=== PATIENT | female | born 1960 | race Caucasian/White ===

== ENCOUNTER 2023-12-02 11:03 | Outpatient (OUT) | payer OTHER, SELFPAY ==
--- NOTE | 2023-12-02 11:10 | MM_ITS ---
Patient Name: CHETNA JOSHUA MR#: [id number] : 1960 Exam Date: 12/02/2023 Ordering Doctor: DUC ROBLES . RADIOLOGY REPORT PROCEDURE: MM TOMOSYNTHESIS SCREENING BI COMPARISON: MG MAMM SCREEN 3D GLORIA CAD, 11/30/2022. MG MAMM SCREEN 3D GLORIA CAD, 11/23/2021. MG MAMM SCREEN 3D GLORIA CAD, 11/21/2020. MG MAMM GLORIA SCRN W CAD DIG, 07/21/2013. INDICATIONS: Screening Calculator Name NCI Breast Cancer Risk Assessment Tool 5 Year Breast Cancer Risk 1.90% Lifetime Breast Cancer Risk 8.10% Personal Breast Cancer No Personal Ovarian Cancer No Treatments None Family Cancers Sister with skin cancer at age 56. LOCATION: [facility] BREAST COMPOSITION: The breasts are extremely dense, which lowers the sensitivity of mammography. FINDINGS: DIAGNOSTIC CATEGORY 1--NEGATIVE. RIGHT BREAST: No significant suspicious finding. No significant change has occurred. LEFT BREAST: No significant suspicious finding. No significant change has occurred. RECOMMENDATIONS: ROUTINE MAMMOGRAM AND CLINICAL EVALUATION IN 12 MONTHS. PLEASE NOTE: A NORMAL MAMMOGRAM DOES NOT EXCLUDE THE POSSIBILITY OF BREAST CANCER. A CLINICALLY SUSPICIOUS PALPABLE LUMP SHOULD BE BIOPSIED. Dictated by: Lui Orozco M.D. on 12/03/2023 at 14:32 Approved by: Lui Orozco M.D. on 12/03/2023 at 14:33
== END 2023-12-02 11:04 | disposition home or self-care (01) ==
LOC: MAMMO 11:06
PROVIDERS: PCP Nurse Practitioner; Visit Provider Nurse Practitioner
DX: Z12.31 Encounter for screening mammogram for malignant neoplasm of breast (principal); Z80.8 Family history of malignant neoplasm of other organs or systems
CPT/HCPCS: 77063; 77067

== ENCOUNTER 2024-04-13 08:25 | Outpatient (OUT) | payer OTHER, SELFPAY ==
--- OUTSIDE RECORDS SUMMARY | 2024-04-13 08:29 | XMS_ITS | CCD ---
Author Organization [facility] Inform ion Partnership [facility] Care Team Providers Care Telemetry Monitor Name Role Phone SUMANTH, DR FRED Smith Consulting Unavailable SUMANTH, DR FRED Smith Primary Care Unavailable SUMANTH, DR FRED Smith Admitting Unavailable SUMANTH, DR FRED Smith Attending Unavailable SUMANTH, DR FRED Smith Consulting Unavailable SUMANTH, DR FRED Smith Primary Care Unavailable SUMANTH, DR FRED Smith Admitting Unavailable SUMANTH, DR FRED Smith Attending Unavailable ELIO, DR LALO Ford Consulting Unavailable SUMANTH, DR FRED Smith Consulting Unavailable SUMANTH, DR FRED Smith Primary Care Unavailable SUMANTH, DR FRED Smith Admitting Unavailable SUMANTH, DR FRED Smith Attending Unavailable ELIO, DR LALO Ford Consulting Unavailable Jeanette Shipley Primary Care Physician [phone] DO Jose G Carter Attending Unavailable Violetta, JU Reza Attending Unavailable Allergies Allergy Classification Reported Allergen(s) Allergy Type Date of Onset Reaction(s) Facility (1 source) No Known Medication Allergies; Translations: [No Known Medication Allergies] Propensity to adverse reactions (disorder) [facility] Repository Problems Active Problems Problem Classification Problem Date Documented Da te Episodic/Chronic Hemorrhoids (1 source) External hemorrhoids 04-22-2019 Episodic Malaise and fatigue (1 source) Fatigue 04-05-2023 Episodic Unclassified (1 source) Patient encounter status 04-05-2023 Past or Other Problems Problem Classification Problem Date Documented Da te Episodic/Chronic Fracture of lower limb (1 source) Nondisplaced fracture of proximal phalanx of right lesser toe(s), initial encounter for closed fracture; Translations: [NDSPL FX FL PHAL RT LSR TOE INIT CL] Onset: 06-24-2021 Episodic Other connective tissue disease (4 sources) Pain in right foot; Translations: [PAIN IN RIGHT FOOT] Onset: 06-20-2021 Episodic Other screening for suspected conditions (not mental disorders or infectious disease) (4 sources) Encounter for screening mammogram for malignant neoplasm of breast; Translations: [ENC SCR MAMMO MALIG NEOPLASM BREAST] Onset: 11-23-2021 Episodic Residual codes; unclassified (1 source) Family history of malignant neoplasm of other organs or systems; Translations: [FAM HX MALIG NEOPLASM OTH ORGN/SYS] Onset: 11-29-2021 Episodic Results Test Name Value Interpretation Reference Range Facility Ambulatory Visit Summaryon 0 04-08-2024 Ambulatory Visit Summary Ambulatory Visit Summary CHETNA MEDEIROS :1960 Visit Date:04/08/2024 Ambulatory Visit Instructions Your Diagnosis Wellness examination Fatigue Family history of thyroid disease BMI less than 19,adult Non-smoker Your Care Team Attending Physician - Jeanette Lemus Primary Care Physician - Jeanette Lemus Procedures Performed Hemorrhoidectomy (04/13/2019), Biopsy of breast, D&C - Dilatation and curettage, excision of skin cancer. Discharge Vitals Temperature (Temporal Artery) 36.6 ?C Heart Rate (Peripheral) 101 Respiratory Rate 16 Blood Pressure 110/72 Height 180 cm Height 71 in Weight 63.8 kg Weight 140.36 lb BMI 19.69 Allergies No Known Medication Allergies Problems Ongoing - Any problem that you are currently receiving treatment for. External hemorrhoid Family history of thyroid disease Fatigue Wellness examination Patient Survey You may receive a survey via text or e-mail asking about your office visit. Please share your experience with us by completing your survey. We appreciate your feedback and thank you for choosing us for your care. Normal [facility] Family Medicine Office/Clini c Noteon 04-08-2024 Family Medicine Office/Clinic Note Family Medicine Office/Clinic Note Chief Complaint Annual Wellness HPI Staff Pt presents today for annual wellness visit. Health Maintenance: Colonoscopy: 2011 normal Mammo:12/02/23 normal Pap:2020 normal Last Labs: 04/05/23 Does not have wellness paperwork on her. States she will get it later this week & then bring it in for us to fill out. Arms & hands have been itching. Noticed redness on Lt elbow area today. History of Present Illness pt presents today for wellness visit Review of Systems PHQ Score Initial Depression Screen Score: 0 SCORE Physical Exam Vitals & Measurements T: 36.6 ?C(Temporal Artery) HR: 101(Peripheral) RR: 16 BP: 110/72 SpO2: 97% HT: 71 in HT: 180 cm WT: 63.8 kg WT: 140.36 lb BMI: 19.69 General: alert, no acute distress ENMT: oral mucosa moist, no pharyngeal erythema or exudate Cardiovascular: regular rate and rhythm, normal peripheral perfusion Respiratory: Lungs CTA, respirations non labored Extremities: no deformity, no trauma Neurological: oriented x 4, LOC appropriate for age, CN II-XII intact, motor strength equal & normal bilaterally, speech normal Assessment/Plan 1. Wellness examination (Z00.00: Encounter for general adult medical examination without abnormal findings) pt presents for wellness visit. labs printed off. she will have them done at [employer] which is her employer. pt will be retiring in 9 months. 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 physical exam WNL. pt will ask employer if she needs a form completed for insurance. RTC as needed Ordered: CBC w/ Auto Diff Comprehensive Metabolic Panel Est Preventative 40 to 64 years 32653 Free T4 Lipid Panel T3 Free Thyroid Stimulating Hormone 2. Fatigue (R53.83: Other fatigue) will order labs Ordered: CBC w/ Auto Diff Comprehensive Metabolic Panel Est Preventative 40 to 64 years 64858 Free T4 Lipid Panel T3 Free Thyroid Stimulating Hormone 3. Family history of thyroid disease (Z83.49: Family history of other endocrine, nutritional and metabolic diseases) pt twins sister and mother have thyroid disorder. pt feeling very fatigued lately. will check labs today Ordered: CBC w/ Auto Diff Comprehensive Metabolic Panel Est Preventative 40 to 64 years 68532 Free T4 Lipid Panel T3 Free Thyroid Stimulating Hormone 4. BMI less than 19,adult (Z68.1: Body mass index [BMI] 19.9 or less, adult) BMI education given Ordered: CBC w/ Auto Diff Comprehensive Metabolic Panel Est Preventative 40 to 64 years 47169 Free T4 Lipid Panel T3 Free Thyroid Stimulating Hormone 5. Non-smoker (Z78.9: Other specified health status) continue not smoking Ordered: CBC w/ Auto Diff Comprehensive Metabolic Panel Est Preventative 40 to 64 years 00026 Free T4 Lipid Panel T3 Free Thyroid Stimulating Hormone Follow-up No qualifying data available Problem List/Past Medical History Ongoing External hemorrhoid Family history of thyroid disease Fatigue Wellness examination Historical No qualifying data Procedure/Surgical History Hemorrhoidectomy (04/13/2019), Biopsy of breast, D&C - Dilatation and curettage, excision of skin cancer. Medications No active medications Allergies No Known Medication Allergies Social History Alcohol - Denies Alcohol Use, 03/30/2019 Substance Abuse - Denies Substance Abuse, 03/30/2019 Tobacco Never (less than 100 in lifetime) Tobacco Use:. Never Smokeless Tobacco Use:. Household tobacco concerns: No. Yes, 04/08/2024 Family History Family history is negative Immunizations Vaccine Date Status Comments influenza virus vaccine, inactivated 05/09/2023 Given influenza virus vaccine, inactivated - Not Given Patient Refuses [place] [facility] influenza virus vaccine, inactivated 05/07/2022 Recorded influenza virus vaccine, inactivated 05/30/2021 Given Prophylaxis SARS-CoV-2 (COVID-19) mRNA-1273 vaccine 08/08/2020 Recorded SARS-CoV-2 (COVID-19) mRNA-1273 vaccine 07/11/2020 Recorded Normal [facility] Comment on above: Result Comment: Elec tronically Signed By: Jeanette Lemus\.br\Date and Time Signed: 04/08/24 10:47 EDT Outside Mammographyon 2023 Outside Mammography [id number] 26B#1.00TIFF Normal [facility] CHEMISTRYOrdered By: SYSTEM SYSTEM on 04-05-2023 Albumin [Mass/Vol] 4.0 g/dL Normal 3.3 - 5.0 gm/dL [facility] Remisol Albumin/Globulin [Mass ratio] 1.4 {ratio} Normal 1.1 - 2.2 FT Remisol ALP [Catalytic activity/Vol] 63 [iU]/d Normal 21 - 98 Int._Unit/L [facility] Remisol ALT No additional P-5'-P [Catalytic activity/Vol] 12 [iU]/d Normal 6 - 46 Int._Unit/L [facility] Remisol Anion gap [Moles/Vol] 10 mmol/L Normal 6 - 16 mEq/L [facility] Remisol AST [Catalytic activity/Vol] 22 [iU]/d Normal 5 - 43 Int._Unit/L [facility] Bilirubin [Mass/Vol] 0.9 mg/dL Normal 0.0 - 1 .1 mg/dL [facility] Calcium [Mass/Vol] 9.2 mg/dL Normal 8.9 - 11. 1 mg/dL [facility] Chloride [Moles/Vol] 109 mmol/L Normal 101 - 1 11 mmol/L [facility] Cholesterol [Mass/Vol] 172 mg/dL Normal 120 - 200 mg/dL [facility] Cholesterol in HDL [Mass/Vol] 76 mg/dL Invalid Interpretation Code [facility] Cholesterol in LDL [Mass/Vol] 83 mg/dL Normal <=129mg/dL [facility] Cholesterol in VLDL [Mass/Vol] 8 mg/dL Normal 7 - 40 mg/dL [facility] CO2 [Moles/Vol] 27 mmol/L Normal 21 - 31 mmol/L [facility] Creatinine [Mass/Vol] 0.7 mg/dL Normal 0.5 - 1.3 mg/dL [facility] GFR/1.73 sq M.predicted among non-blacks MDRD (S/P/Bld) [Vol rate/Area] 97 mL/min/1.73 m2 Normal >=59mL/min/1. 73 m2 FT Chem S Globulin (S) [Mass/Vol] 2.9 g/dL Normal 1.4 - 4.0 gm/dL [facility] Glucose [Mass/Vol] 84 mg/dL Normal 55 - 199 mg/dL [facility] Potassium [Moles/Vol] 4.5 mmol/L Normal 3.5 - 5.3 mmol/L [facility] Protein [Mass/Vol] 6.9 g/dL Normal 6.0 - 7.8 gm/dL [facility] Sodium [Moles/Vol] 141 mmol/L Normal 135 - 145 mmol/L [facility] Triglyceride [Mass/Vol] 42 mg/dL Normal <=149mg/dL [facility] TSH Qn 1.07 m[IU]/L Normal 0.34 - 5.60 mcIU/mL [facility] Urea nitrogen [Mass/Vol] 17 mg/dL Normal 5 - 21 mg/dL [facility] Urea nitrogen/Creatinine [Mass ratio] 24 mg/mg High 10 - 20 [facility] HEMATOLOGYOrdered By: SYSTEM SYSTEM on 04-05-2023 Basophils/100 WBC (Bld) 1.0 % Normal 0.0 - 2.0 % [facility] HemeAutoSS Basophils/Leukocytes Auto (Bld) [Pure # fraction] 0.1 E9/L Normal 0.0 - 0.2 E9/L [facility]Auto[facility] Eosinophils/100 WBC (Bld) 4.2 % Normal 0.0 - 8.0 % [facility]Auto[facility] Eosinophils/Leukocytes Auto (Bld) [Pure # fraction] 0.2 E9/L Normal 0.0 - 0.5 E9/L [facility] Lymphocytes/100 WBC (Bld) 35.0 % Normal 14.0 - 50.0 % [facility]eAutoSS Lymphocytes/Leukocytes Auto (Bld) [Pure # fraction] 1.9 E9/L Normal 1.0 - 4.0 E9/L [facility]Auto[facility] Monocytes/100 WBC (Bld) 11.4 % Normal 4.0 - 14.0 % [facility]eAutoSS Monocytes/Leukocytes Auto (Bld) [Pure # fraction] 0.6 E9/L Normal 0.2 - 1.0 E9/L [facility] Neutrophils/100 WBC (Bld) 48.4 % Normal 36.0 - 75.0 % [facility]eAutoSS Neutrophils/Leukocytes Auto (Bld) [Pure # fraction] 2.6 E9/L Normal 2.0 - 7.5 E9/L [facility] HEMATOLOGYOrdered By: Ivan Sung on 04-05-2023 Erythrocyte distribution width (RBC) [Ratio] 14.8 % High 10.9 - 14.2 % [facility] Hematocrit (Bld) [Volume fraction] 41.2 % Normal 34.0 - 46.0 % [facility] Hemoglobin (Bld) [Mass/Vol] 13.6 g/dL Normal 12.0 - 16.0 gm/dL [facility] MCH (RBC) [Entitic mass] 27.8 pg Normal 27.0 - 34.0 pg [facility] MCHC (RBC) [Mass/Vol] 32.9 g/dL Normal 31.4 - 36.0 gm/dL [facility] MCV (RBC) [Entitic vol] 84.5 fL Normal 80.0 - 100.0 fL [facility] Platelet mean volume (Bld) [Entitic vol] 8.1 fL Normal 6.4 - 10.8 fL [facility] HemeAutoSS Platelets (Bld) [#/Vol] 366.0 E9/L Normal 150.0 - 500.0 E9/L [facility] RBC (Bld) [#/Vol] 4.9 E12/L Normal 4.3 - 5.9 E12/L [facility] WBC corrected for nucl RBC Auto (Bld) [#/Vol] 5.5 E9/L Normal 4.0 - 11.0 E9/L [facility] CBC AUTO DIFFon 04-13-2022 BASO # 0.1 103/ul Normal 0.0-0.1 [facility] Comment on above: Performed By: #### C BC #### [facility] [address] [place] [address] Dr. Sumaya Frazier Basophils/100 WBC (Bld) 1.7 % Normal 0.2-2.0 [facility] Comment on above: Performed By: #### C BC #### [facility] [address] [place] [address] Dr. Sumaya Frazier EO # 0.2 103/ul Normal 0.0-0.7 [facility] Comment on above: Performed By: #### C BC #### [facility] [address] [place] [address] Dr. Sumaya Frazier Eosinophils/100 WBC (Bld) 2.2 % Normal 0.9-7.0 [facility] Comment on above: Performed By: #### C BC #### [facility] [address] [address] [address] Sumaya Frazier Erythrocyte distribution width (RBC) [Ratio] 14.6 % Normal 11.0-15.0 [facility] Comment on above: Performed By: #### C BC #### [facility] [address] [place] [address] Dr. Sumaya Frazier Hematocrit (Bld) [Volume fraction] 41.9 % Normal 36.0-48.0 [facility] Comment on above: Performed By: #### C BC #### [facility] [address] [place] [address] Dr. Sumaya Frazier Hemoglobin (Bld) [Mass/Vol] 13.2 g/dL Normal 12.0-16.0 [facility] Comment on above: Performed By: #### C BC #### [facility] [address] [place] [address] Dr. Sumaya Frazier IG # 0.02 10e3/ul Normal 0.00-0.03 [facility] Comment on above: Performed By: #### C BC #### [facility] [address] [place] [address] Dr. Sumaya Frazier IG % 0.3 % Normal 0.0-0.5 [facility] Comment on above: Performed By: #### C BC #### [facility] [address] [place] [address] Dr. Sumaya Frazier LYMPH # 3.1 103/ul Normal 1.2-3.8 [facility] Comment on above: Performed By: #### C BC #### [facility] [address] [place] [address] Dr. Sumaya Frazier Lymphocytes/100 WBC (Bld) 44.8 % Normal 20.5-60.0 [facility] Comment on above: Performed By: #### C BC #### [facility] [address] [place] [address] Dr. Sumaya Frazier MANUAL DIFF REQ NO Normal [facility] Comment on above: Performed By: #### C BC #### [facility] [address] [place] [address] Dr. Sumaya Frazier MCH (RBC) [Entitic mass] 27.2 pg Normal 26.7-34.0 [facility] Comment on above: Performed By: #### C BC #### [facility] [address] [place] [address] Dr. Sumaya Frazier MCHC (RBC) [Mass/Vol] 31.5 g/dL Normal 29.9-35.2 [facility] Comment on above: Performed By: #### C BC #### [facility] [id number] Sumaya Frazier MCV (RBC) [Entitic vol] 86.2 fL Normal 81.0-99.0 [facility] Comment on above: Performed By: #### C BC #### [facility] [address] [address] [address] Sumaya Frazier MONO # 0.7 103/ul Normal 0.3-0.8 [facility] Comment on above: Performed By: #### C BC #### [facility] [address] [place] [address] Dr. Sumaya Frazier Monocytes/100 WBC (Bld) 10.2 % Normal 1.7-12.0 [facility] Comment on above: Performed By: #### C BC #### [facility] [address] [place] [address] Dr. Sumaya Frazier NEUT # 2.8 103/ul Normal 1.4-6.5 [facility] Comment on above: Performed By: #### C BC #### [facility] [address] [place] [address] Dr. Sumaya Frazier Neutrophils/100 WBC (Bld) 40.8 % Critically low 43.0-75.0 [facility] Comment on above: Performed By: #### C BC #### [facility] [address] [place] [address] Dr. Sumaya Frazier Platelet mean volume (Bld) [Entitic vol] 9.4 fL Critically low 9.5-13.5 [facility] Comment on above: Performed By: #### C BC #### [facility] [address] [place] [address] Dr. Sumaya Frazier PLT 411 103/ul Normal 150-450 [facility] Comment on above: Performed By: #### C BC #### [facility] [address] [place] [address] Dr. Sumaya Frazier RBC 4.86 106/ul Normal 4.20-5.40 [facility] Comment on above: Performed By: #### C BC #### [facility] [address] [place] [address] Dr. Sumaya Frazier WBC 7.0 103/ul Normal 4.0-11.0 [facility] Comment on above: Performed By: #### C BC #### [facility] [address] [address] [address] Sumaya Frazier LIPID PROFILEon 04-13-2022 CHOL-HDL RATIO NORM SEE BELOW Normal [facility] Comment on above: Result Comment: 3.3 - 4.4 LOW RISK 4.4 - 7.1 AVERAGE RISK 7.1 - 11.0 MODERATE RISK >11.0 HIGH RISK Performed By: #### L IPID, CMP #### [facility] [address] [address] [address] Sumaya Frazier Cholesterol [Mass/Vol] 165 mg/dL Normal <=200 [facility] Comment on above: Performed By: #### L IPID, CMP #### [facility] [address] [address] [address] Sumaya Frazier Cholesterol in HDL [Mass/Vol] 78 mg/dL Critically high 40-60 [facility] Comment on above: Performed By: #### L IPID, CMP #### [facility] [address] [address] [address] Sumaya Frazier Cholesterol in LDL [Mass/Vol] 78.4 mg/dL Normal [facility] Comment on above: Performed By: #### L IPID, CMP #### [facility] [address] [address] [address] Sumaya Frazier Cholesterol.total/Chol esterol in HDL [Mass ratio] 2.1 {ratio} Normal [facility] Comment on above: Performed By: #### L IPID, CMP #### [facility] [address] [address] [address] Sumaya Frazier HDL NORMAL > or = 60 mg/dl - LOW CARDIOVASCULAR RISK <40 mg/dl - HIGH CARDIOVASCULAR RISK Normal [facility] Comment on above: Performed By: #### L IPID, CMP #### [facility] [address] [address] [address] Sumaya Frazier LDL CALC NORMAL SEE BELOW Normal [facility] Comment on above: Result Comment: <100 mg/dl OPTIMAL 100 - 129 mg/dl NEAR OR ABOVE OPTIMAL 130 - 159 mg/dl BORDERLINE HIGH 160 - 189 mg/dl HIGH >190 mg/dl VERY HIGH Performed By: #### L IPID, CMP #### [facility] [address] [place] [address] Dr. Sumaya Frazier Triglyceride [Mass/Vol] 43 mg/dL Normal <=150 [facility] Comment on above: Performed By: #### L IPID, CMP #### [facility] [address] [place] [address] Dr. Sumaya Frazier VLDL CALC 8.6 mg/dL Normal [facility] Comment on above: Performed By: #### L IPID, CMP #### [facility] [address] [place] [address] Dr. Sumaya Frazier PROF 14(COMP METB)on 022 Albumin [Mass/Vol] 3.8 g/dL Normal 3.4-5.0 [facility] Comment on above: Performed By: #### L IPID, CMP #### [facility] [address] [place] [address] Dr. Sumaya Frazier Albumin/Globulin [Mass ratio] 1.1 {ratio} Normal [facility] Comment on above: Performed By: #### L IPID, CMP #### [facility] [address] [place] [address] Dr. Sumaya Frazier ALP [Catalytic activity/Vol] 89 U/L Normal 46-116 [facility] Comment on above: Performed By: #### L IPID, CMP #### [facility] [address] [place] [address] Dr. Sumaya Frazier ALT [Catalytic activity/Vol] 23 U/L Normal 14-59 [facility] Comment on above: Performed By: #### L IPID, CMP #### [facility] [address] [place] [address] Dr. Sumaya Frazier Anion gap [Moles/Vol] 8.9 mmol/L Normal [facility] Comment on above: Performed By: #### L IPID, CMP #### [facility] [address] [address] [address] Sumaya Frazier AST [Catalytic activity/Vol] 18 U/L Normal 15-37 [facility] Comment on above: Performed By: #### L IPID, CMP #### [facility] [address] [place] [address] Dr. Sumaya Frazier Bilirubin [Mass/Vol] 0.9 mg/dL Normal 0.2-1.0 [facility] Comment on above: Performed By: #### L IPID, CMP #### [facility] [address] [place] [address] Dr. Sumaya Frazier Calcium [Mass/Vol] 8.4 mg/dL Critically low 8.5-10.1 [facility] Comment on above: Performed By: #### L IPID, CMP #### [facility] [address] [place] [address] Dr. Sumaya Frazier Chloride [Moles/Vol] 104 mmol/L Normal 98-107 [facility] Comment on above: Performed By: #### L IPID, CMP #### [facility] [address] [place] [address] Dr. Sumaya Frazier CO2 [Moles/Vol] 27.4 mmol/L Normal 21.0-32.0 [facility] Comment on above: Performed By: #### L IPID, CMP #### [facility] [address] [place] [address] Dr. Sumaya Frazier Creatinine [Mass/Vol] 0.66 mg/dL Normal 0.55-1.02 [facility] Comment on above: Performed By: #### L IPID, CMP #### [facility] [address] [place] [address] Dr. Sumaya Frazier EGFR-AF CUBAN >60 Normal >=60 [facility] Comment on above: Performed By: #### L IPID, CMP #### [facility] [address] [place] [address] Dr. Sumaya Frazier EGFR-NON AF CUBAN >60 Normal >=60 [facility] Comment on above: Performed By: #### L IPID, CMP #### [facility] [address] [address] [address] Sumaya Frazier Globulin (S) [Mass/Vol] 3.5 g/dL Normal [facility] Comment on above: Performed By: #### L IPID, CMP #### [facility] [address] [address] [address] Sumaya Frazier Glucose [Mass/Vol] 90 mg/dL Normal 74-106 [facility] Comment on above: Performed By: #### L IPID, CMP #### [facility] [address] [place] [address] Dr. Sumaya Frazier Potassium [Moles/Vol] 4.3 mmol/L Normal 3.5-5.1 [facility] Comment on above: Performed By: #### L IPID, CMP #### [facility] [address] [place] [address] Dr. Sumaya Frazier Protein [Mass/Vol] 7.3 g/dL Normal 6.4-8.2 [facility] Comment on above: Performed By: #### L IPID, CMP #### [facility] [address] [place] [address] Dr. Sumaya Frazier Sodium [Moles/Vol] 136 mmol/L Normal 136-145 [facility] Comment on above: Performed By: #### L IPID, CMP #### [facility] [address] [place] [address] Dr. Sumaya Frazier Urea nitrogen [Mass/Vol] 16.0 mg/dL Normal 7.0-18.0 [facility] Comment on above: Performed By: #### L IPID, CMP #### [facility] [address] [place] [address] Dr. Sumaya Frazier Urea nitrogen/Creatinine [Mass ratio] 24.2 mg/mg Normal [facility] Comment on above: Performed By: #### L IPID, CMP #### [facility] [address] [place] [address] Dr. Sumaya Frazier MG MAMM SCREEN 3D GLORIA CADon 11-23-2021 MG MAMM SCREEN 3D GLORIA CAD Patient: CHRISTIANOODINJuaquinMISSAEL CHETNA Reza. Exam Date: 11/23/2021 : 1960 Gender:F Ordering : DR FRED JULIO . Admission #: [id number] Family : Order #: [id number] CLICK HERE TO VIEW EXAM RADIOLOGY REPORT PROCEDURE: MAMMOGRAM SCREENING 3D BILATERAL CAD COMPARISON: MG MAMM SCREEN 3D GLORIA CAD, 11/21/2020. MG MAMM SCREEN GLORIA W CAD, 11/18/2019. INDICATIONS: Screening for malignant neoplasm of breast Calculator Name NCI Breast Cancer Risk Assessment Tool 5 Year Breast Cancer Risk 1.80% Lifetime Breast Cancer Risk 8.70% Personal Breast Cancer No Personal Ovarian Cancer No Treatments None Family Cancers Sister with skin cancer at age 56. LOCATION: [facility] BREAST COMPOSITION: Extremely dense, which lowers the sensitivity of mammography. FINDINGS: DIAGNOSTIC CATEGORY 2--BENIGN FINDING. NO CHANGE FROM COMPARISON. Scattered benign-appearing calcifications are present. RIGHT BREAST: No significant suspicious finding. Stable architectural distortion in the axillary tail, surgical scarring favored LEFT BREAST: No significant suspicious finding. RECOMMENDATIONS: ROUTINE MAMMOGRAM AND CLINICAL EVALUATION IN 12 MONTHS. PLEASE NOTE: A NORMAL MAMMOGRAM DOES NOT EXCLUDE THE POSSIBILITY OF BREAST CANCER. A CLINICALLY SUSPICIOUS PALPABLE LUMP SHOULD BE BIOPSIED. Dictated by: Lalo Ballard MD on 11/23/2021 at 14:09 Approved by: Lalo Ballard MD on 11/23/2021 at 14:10 Normal [facility] Encounters Encounter Date Encounter Type Care Provider Facility Start: 04-08-2024 End: 04-08-2024 ambulatory BROADCAST TECHNICIAN Jeanette Shipley Facility:[facility] Start: 05-09-2023 End: 08-07-2023 ambulatory DO Jose G Carter [place] Start: 04-05-2023 End: 04-05-2023 Lab Drop off Jeanette Shipley [facility] Start: 04-16-2022 Encounter for genera l adult medical examination without abnormal findings DR FRED JULIO [facility] Start: 04-13-2022 End: 04-14-[address] FRED JULIO Facility: Start: 04-13-2022 End: 04-14-2022 Encounter for general adult medical examination without abnormal findings DR FRED JULIO Facility:[facility] Start: 11-23-2021 End: 11-24-[address] FRED JULIO Facility:[facility] Start: 06-20-2021 End: 06-21-[address] FRED JULIO Facility:[facility] Procedures Date Procedure Procedure Detail Performing Clinician Start: 04-13-2019 Hemorrhoidectomy Jeanette Darling chwab Start: 07-15-2012 Colonoscopy Jeanette Regaladoa b Biopsy of breast Jeanette Violetta Comment on above: right Dilation and curetta ge of uterus Jeanette Violetta excision of skin cancer Jeanette Violetta MRI guided focused ultrasound ablation of uterine fibroid Jeanette Violetta Immunizations Immunization Date Immunization Notes Care Provider [facility] 05-07-2022 influenza virus vaccine, unspecified formulation Jaenette Violetta [facility] 05-30-2021 influenza virus vaccine, unspecified formulation Jeanette Violetta [facility] Comment on above: Reason for Medicatio n: Prophylaxis 08-08-2020 SARS-CoV-2 (COVID-19 ) mRNA-1273 vaccine Jeanette Violetta [facility] 07-11-2020 SARS-CoV-2 (COVID-19 ) mRNA-1273 vaccine Jeanette Violetta [facility] NEGATED: Highlighted row has not occurred!04-05-2023 influenza virus vaccine, unspecified formulation Jeanette Violetta [facility] Comment on above: Result Comment: [place] [facility] Payers Date Payer Category Payer Private Health Insurance [id number] 1960 Unknown [id number] [id number] [id number] 1960 Unknown [id number] 2.16.84 [id number] 1960 Unknown [id number] 2.16.84 [id number] 1960 Unknown [id number] [id number] 1960 Unknown [id number] [id number] 1959 Unknown [id number] Social History Date Type Detail Facility Start: 04-05-2023 Tobacco smoking status Never s moked tobacco (finding) [facility] Tobacco smoking status Never [facility] Sex Assigned At Female [facility] Clinical Note 06-20-2021 Note Date & Type Note Facility 06-20-2021 Note PROCEDURE: XR FOOT R T MIN 3 VIEWS COMPARISON: None. HISTORY: Pain in right foot FINDINGS: BONES:Subtle cortical contour deformity and discontinuity noted along the proximal diaphysis of the fifth proximal phalanx seen only on image #3 consistent with a nondisplaced acute fracture. No definite extension to the proximal articular surface. No dislocation. SOFT TISSUES:Negative. No visible soft tissue swelling. EFFUSION:None visible. OTHER: Call results initiated through operations IMPRESSION: Nondisplaced acute extra-articular fracture base of the fifth proximal phalanx Electronically authenticated by: LALO BALLARD Date: 2021-06-20 16:03 [facility] Evaluation + Plan note Note Date & Type Note Facility Evaluation + Plan note No data available for this section [facility] Hospital Discharge instructions Note Date & Type Note Facility Hospital Discharge instructions No data available for this section [facility] Progress note Note Date & Type Note Facility Progress note No data available for this section [facility] Summary Purpose Family History No Family History Records FoundNo Family History Records Found Advance Directives No Advanced Directives Records FoundNo Advanced Directives Records Found Additional Source Comments INFORMATION SOURCE (unrecogn ized section and content) DATE CREATED AUTHOR 04/17/2022 [facility] p[facility] DATE CREATED AUTHOR AUTHOR'S ORGANIZ ATION 04/09/2024 [facility] Patient Care team informatio n (unrecognized section and content) Personnel Name: Jeanette Lemus Address: Address: [address] [place] [id number]- FOR RECORDS PERTAINING TO PATIENTS WHO ARE OR HAVE BEEN ENROLLED IN A CHEMICAL DEPENDENCY/SUBSTANCEABUSE PROGRAM, SOME INFORMATION MAY BE OMITTED. This clinical summary was aggregated from multiple sources. Caution should be exercised in using it in the provision of clinical care. This summary normalizes information from multiple sources, and as a consequence, information in this document may materially change the coding, format and clinical context of patient data. In addition, data may be omitted in some cases. CLINICAL DECISIONS SHOULD BE BASED ON THE PRIMARY CLINICAL RECORDS. [facility] [employer] [facility]. provides no warranty or guarantee of the accuracy or completeness of information in this document.
[2024-04-13 09:20] LABS: Basophils Absolute Auto 0.1 10^3/uL (0.0-0.1); Basophils Percent Auto 2.1 % (0.2-2.0); Eosinophils Absolute Auto 0.3 10^3/uL (0.0-0.7); Eosinophils Percent Auto 5.4 % (0.9-7.0); Hematocrit 41.6 % (36.0-48.0); Hemoglobin 13.3 g/dL (12.0-16.0); Immature Granulocytes Abs Auto 0.01 10^3/uL (0.00-0.03); Immature Granulocytes Pct Auto 0.2 % (0.0-0.5); Lymphocytes Absolute Auto 1.8 10^3/uL (1.2-3.8); Lymphocytes Percent Auto 35.4 % (20.5-60.0); Mean Corpuscular Hemoglobin 27.8 pg (26.7-34.0); Monocytes Absolute Auto 0.6 10^3/uL (0.3-0.8); Monocytes Percent Auto 12.4 % (1.7-12.0); Neutrophils Absolute Auto 2.3 10^3/uL (1.4-6.5); Neutrophils Percent Auto 44.5 % (43.0-75.0); Platelet Count 358 10^3/uL (150-450); Red Blood Count 4.78 10^6/uL (4.20-5.40); Red Cell Distribution Width 14.6 % (11.0-15.0); White Blood Count 5.2 10^3/uL (4.0-11.0)
[2024-04-13 09:58] LABS: Free T4 1.02 ng/dL (0.76-1.46)
[2024-04-13 10:05] LABS: Alanine Aminotransferase 20 U/L (14-59); Albumin Globulin Ratio 1.1; Albumin Level 3.5 g/dL (3.4-5.0); Alkaline Phosphatase 87 U/L (46-116); Anion Gap 8.3; Aspartate Amino Transferase 20 U/L (15-37); BUN Creatinine Ratio 15.8; Calcium 8.7 mg/dL (8.5-10.1); Carbon Dioxide 29.1 mmol/L (21.0-32.0); Chloride 104 mmol/L (98-107); Cholesterol 166 mg/dL (<=200); Estimated GFR (African America >60 (>=60); Estimated GFR (Non-African Ame >60 (>=60); Free T3 2.64 pg/mL (2.18-3.98); Globulin 3.3 g/dL; Glucose 87 mg/dL (74-106); HDL Cholesterol 82 mg/dL (40-60); Potassium 4.4 mmol/L (3.5-5.1); Sodium 137 mmol/L (136-145); Thyroid Stimulating Hormone 1.211 uIU/mL (0.358-3.740); Total Protein 6.8 g/dL (6.4-8.2); Triglycerides 50 mg/dL (<=150)
== END 2024-04-13 08:26 | disposition home or self-care (01) ==
LOC: LAB 08:26
PROVIDERS: PCP Nurse Practitioner; Visit Provider Nurse Practitioner
DX: Z00.00 Encounter for general adult medical examination without abnormal findings (principal); R53.83 Other fatigue; Z78.9 Other specified health status; Z83.49 Family history of other endocrine, nutritional and metabolic diseases; Z68.1 Body mass index [BMI] 19.9 or less, adult
CPT/HCPCS: 36415; 80053; 80061; 84439; 84443; 84481; 85025

== ENCOUNTER 2024-12-11 07:50 | Outpatient (OUT) | payer OTHER, SELFPAY ==
--- OUTSIDE RECORDS SUMMARY | 2024-12-11 08:12 | XMS_ITS | CCD ---
Author Organization [facility] Inform ion Partnership [facility] Care Team Providers Care Field Service Specialist Name Role Phone SUMANTH, DR FRED Smith [...] DR FRED Smith Admitting Unavailable SUMANTH, DR RFED Smith Attending Unavailable ELIO, DR LALO Ford Consulting Unavailable Jeanette Shipley Primary Care Physician [phone] DO Jose G Carter Attending Unavailable Violetta, JU Reza Attending Unavailable Allergies Allergy Classification Reported Allergen(s) Allergy Type Date of Onset Reaction(s) Facility (1 source) No Known Medication Allergies; Translations: [No Known Medication Allergies] Propensity to adverse reactions (disorder) [facility] Repository Problems Active Problems Problem Classification Problem [...] encounter for closed fracture; Translations: [NDSPL FX CA PHAL RT LSR TOE INIT CL] Onset: [...] for choosing us for your care. Normal [facility] Family Medicine Office/Clini c Noteon 04-08-2024 Family [...] off. she will have them done at [employer] which is her employer. pt will be retiring in 9 months. 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 physical exam WNL. pt will ask employer if she needs a form completed for insurance. RTC as needed Ordered: CBC w/ Auto Diff Comprehensive Metabolic Panel Est Preventative 40 to 64 years 07080 Free T4 Lipid Panel T3 Free Thyroid Stimulating Hormone 2. Fatigue (R53.83: Other fatigue) will order labs Ordered: CBC w/ Auto Diff Comprehensive Metabolic Panel Est Preventative 40 to 64 years 71613 Free T4 Lipid Panel T3 Free Thyroid Stimulating Hormone 3. Family history of thyroid disease (Z83.49: Family history of other endocrine, nutritional and metabolic diseases) pt twins sister and mother have thyroid disorder. pt feeling very fatigued lately. will check labs today Ordered: CBC w/ Auto Diff Comprehensive Metabolic Panel Est Preventative 40 to 64 years 43483 Free T4 Lipid Panel T3 Free Thyroid Stimulating Hormone 4. BMI less than 19,adult (Z68.1: Body mass index [BMI] 19.9 or less, adult) BMI education given Ordered: CBC w/ Auto Diff Comprehensive Metabolic Panel Est Preventative 40 to 64 years 20151 Free T4 Lipid Panel T3 Free Thyroid Stimulating Hormone 5. Non-smoker (Z78.9: Other specified health status) continue not smoking Ordered: CBC w/ Auto Diff Comprehensive Metabolic Panel Est Preventative 40 to 64 years 97665 Free T4 Lipid Panel T3 Free Thyroid [...] Given Patient Refuses pt getting down through [facility] influenza virus vaccine, inactivated 05/07/2022 Recorded influenza virus vaccine, inactivated 05/30/2021 Given Prophylaxis SARS-CoV-2 (COVID-19) mRNA-1273 vaccine 08/08/2020 Recorded SARS-CoV-2 (COVID-19) mRNA-1273 vaccine 07/11/2020 Recorded Normal [facility] Comment on above: Result Comment: Elec tronically Signed By: Jeanette Lemus\.br\Date and Time Signed: 04/08/24 10:47 EDT Outside Mammographyon 2023 Outside Mammography [id number] 26B#1.00TIFF Normal [facility] CHEMISTRYOrdered By: SYSTEM SYSTEM on 04-05-2023 Albumin [Mass/Vol] 4.0 g/dL Normal 3.3 - 5.0 gm/dL [facility] Remisol Albumin/Globulin [Mass ratio] 1.4 {ratio} Normal [...] 84.5 fL Normal 80.0 - 100.0 fL [facility] HemeAutoSS Platelet mean volume (Bld) [Entitic vol] 8.1 fL Normal 6.4 - 10.8 fL FT HemeAutoSS Platelets (Bld) [#/Vol] 366.0 E9/L Normal 150.0 - 500.0 E9/L [facility] HemeAutoSS RBC (Bld) [#/Vol] 4.9 E12/L Normal 4.3 - 5.9 E12/L [facility] HemeAutoSS WBC corrected for nucl RBC Auto (Bld) [#/Vol] 5.5 E9/L Normal 4.0 - 11.0 E9/L [facility] HemeAutoSS CBC AUTO DIFFon 04-13-2022 BASO # 0.1 103/ul Normal 0.0-0.1 [facility] Comment on above: Performed By: #### C BC #### [facility] [address] [place] [address] Dr. Sumaya Frazier Basophils/100 WBC (Bld) 1.7 % Normal 0.2-2.0 [facility] Comment on above: Performed By: #### C BC #### [facility] [address] [place] [address] Dr. Sumaya Frazier EO # 0.2 103/ul Normal 0.0-0.7 [facility] Comment on above: Performed By: #### C BC #### [facility] [address] [place] [address] Dr. Sumaya Frazier Eosinophils/100 WBC (Bld) 2.2 % Normal 0.9-7.0 [facility] Comment on above: Performed By: #### C BC #### [facility] [address] [address] [address] Sumaya Frazier Erythrocyte distribution width (RBC) [Ratio] 14.6 % Normal 11.0-15.0 [facility] Comment on above: Performed By: #### C BC #### [facility] [address] [place] [address] Dr. Sumaya Frazier Hematocrit (Bld) [Volume fraction] 41.9 % Normal 36.0-48.0 [facility] Comment on above: Performed By: #### C BC #### [facility] [address] [place] [address] Dr. Sumaya Frazier Hemoglobin (Bld) [Mass/Vol] 13.2 g/dL Normal 12.0-16.0 [facility] Comment on above: Performed By: #### C BC #### [facility] [address] [place] [address] Dr. Sumaya Frazier IG # 0.02 10e3/ul Normal 0.00-0.03 [facility] Comment on above: Performed By: #### C BC #### [facility] [address] [place] [address] Dr. Sumaya Frazier IG % 0.3 % Normal 0.0-0.5 [facility] Comment on above: Performed By: #### C BC #### [facility] [address] [place] [address] Dr. Sumaya Frazier LYMPH # 3.1 103/ul Normal 1.2-3.8 [facility] Comment on above: Performed By: #### C BC #### [facility] [address] [place] [address] Dr. Sumaya Frazier Lymphocytes/100 WBC (Bld) 44.8 % Normal 20.5-60.0 [facility] Comment on above: Performed By: #### C BC #### [facility] [address] [place] [address] Dr. Sumaya Frazier MANUAL DIFF REQ NO Normal [facility] Comment on above: Performed By: #### C BC #### [facility] [address] [place] [address] Dr. Sumaya Frazier MCH (RBC) [Entitic mass] 27.2 pg Normal 26.7-34.0 [facility] Comment on above: Performed By: #### C BC #### [facility] [address] [place] [address] Dr. Sumaya Frazier MCHC (RBC) [Mass/Vol] 31.5 g/dL Normal 29.9-35.2 [facility] Comment on above: Performed By: #### C BC #### [facility] [id number] Sumaya Frazier MCV (RBC) [Entitic vol] 86.2 fL Normal 81.0-99.0 [facility] Comment on above: Performed By: #### C BC #### [facility] [address] [address] [address] Sumaya Frazier MONO # 0.7 103/ul Normal 0.3-0.8 [facility] Comment on above: Performed By: #### C BC #### [facility] [address] [place] [address] Dr. Sumaya Frazier Monocytes/100 WBC (Bld) 10.2 % Normal 1.7-12.0 [facility] Comment on above: Performed By: #### C BC #### [facility] [address] [place] [address] Dr. Sumaya Frazier NEUT # 2.8 103/ul Normal 1.4-6.5 [facility] Comment on above: Performed By: #### C BC #### [facility] [address] [place] [address] Dr. Sumaya Frazier Neutrophils/100 WBC (Bld) 40.8 % Critically low 43.0-75.0 [facility] Comment on above: Performed By: #### C BC #### [facility] [address] [place] [address] Dr. Sumaya Frazier Platelet mean volume (Bld) [Entitic vol] 9.4 fL Critically low 9.5-13.5 [facility] Comment on above: Performed By: #### C BC #### [facility] [address] [place] [address] Dr. Sumaya Frazier PLT 411 103/ul Normal 150-450 [facility] Comment on above: Performed By: #### C BC #### [facility] [address] [place] [address] Dr. Sumaya Frazier RBC 4.86 106/ul Normal 4.20-5.40 [facility] Comment on above: Performed By: #### C BC #### [facility] [address] [place] [address] Dr. Sumaya Frazier WBC 7.0 103/ul Normal 4.0-11.0 [facility] Comment on above: Performed By: #### C BC #### [facility] [address] [address] [address] Sumaya Frazier LIPID PROFILEon 04-13-2022 CHOL-HDL RATIO NORM SEE BELOW Normal [facility] Comment on above: Result Comment: 3.3 - 4.4 LOW RISK 4.4 - 7.1 AVERAGE RISK 7.1 - 11.0 MODERATE RISK >11.0 HIGH RISK Performed By: #### L IPID, CMP #### [facility] [address] [address] [address] Sumaya Frazier Cholesterol [Mass/Vol] 165 mg/dL Normal <=200 [facility] Comment on above: Performed By: #### L IPID, CMP #### [facility] [address] [address] [address] Sumaya Frazier Cholesterol in HDL [Mass/Vol] 78 mg/dL Critically high 40-60 [facility] Comment on above: Performed By: #### L IPID, CMP #### [facility] [address] [address] [address] Sumaya Frazier Cholesterol in LDL [Mass/Vol] 78.4 mg/dL Normal [facility] Comment on above: Performed By: #### L IPID, CMP #### [facility] [address] [address] [address] Sumaya Frazier Cholesterol.total/Chol esterol in HDL [Mass ratio] 2.1 {ratio} Normal [facility] Comment on above: Performed By: #### L IPID, CMP #### [facility] [address] [address] [address] Sumaya Frazier HDL NORMAL > or = 60 mg/dl - LOW CARDIOVASCULAR RISK <40 mg/dl - HIGH CARDIOVASCULAR RISK Normal [facility] Comment on above: Performed By: #### L IPID, CMP #### [facility] [address] [address] [address] Sumaya Frazier LDL CALC NORMAL SEE BELOW Normal [facility] Comment on above: Result Comment: <100 mg/dl OPTIMAL 100 - 129 mg/dl NEAR OR ABOVE OPTIMAL 130 - 159 mg/dl BORDERLINE HIGH 160 - 189 mg/dl HIGH >190 mg/dl VERY HIGH Performed By: #### L IPID, CMP #### [facility] [address] [place] [address] Dr. Sumaya Frazier Triglyceride [Mass/Vol] 43 mg/dL Normal <=150 [facility] Comment on above: Performed By: #### L IPID, CMP #### [facility] [address] [place] [address] Dr. Sumaya Frazier VLDL CALC 8.6 mg/dL Normal [facility] Comment on above: Performed By: #### L IPID, CMP #### [facility] [address] [place] [address] Dr. Sumaya Frazier PROF 14(COMP METB)on 022 Albumin [Mass/Vol] 3.8 g/dL Normal 3.4-5.0 [facility] Comment on above: Performed By: #### L IPID, CMP #### [facility] [address] [place] [address] Dr. Sumaya Frazier Albumin/Globulin [Mass ratio] 1.1 {ratio} Normal [facility] Comment on above: Performed By: #### L IPID, CMP #### [facility] [address] [place] [address] Dr. Sumaya Frazier ALP [Catalytic activity/Vol] 89 U/L Normal 46-116 [facility] Comment on above: Performed By: #### L IPID, CMP #### [facility] [address] [place] [address] Dr. Sumaya Frazier ALT [Catalytic activity/Vol] 23 U/L Normal 14-59 [facility] Comment on above: Performed By: #### L IPID, CMP #### [facility] [address] [place] [address] Dr. Sumaya Frazier Anion gap [Moles/Vol] 8.9 mmol/L Normal [facility] Comment on above: Performed By: #### L IPID, CMP #### [facility] [address] [address] [address] Sumaya Frazier AST [Catalytic activity/Vol] 18 U/L Normal 15-37 [facility] Comment on above: Performed By: #### L IPID, CMP #### [facility] [address] [place] [address] Dr. Sumaya Frazier Bilirubin [Mass/Vol] 0.9 mg/dL Normal 0.2-1.0 [facility] Comment on above: Performed By: #### L IPID, CMP #### [facility] [address] [place] [address] Dr. Sumaya Frazier Calcium [Mass/Vol] 8.4 mg/dL Critically low 8.5-10.1 [facility] Comment on above: Performed By: #### L IPID, CMP #### [facility] [address] [place] [address] Dr. Sumaya Frazier Chloride [Moles/Vol] 104 mmol/L Normal 98-107 [facility] Comment on above: Performed By: #### L IPID, CMP #### [facility] [address] [place] [address] Dr. Sumaya Frazier CO2 [Moles/Vol] 27.4 mmol/L Normal 21.0-32.0 [facility] Comment on above: Performed By: #### L IPID, CMP #### [facility] [address] [place] [address] Dr. Sumaya Frazier Creatinine [Mass/Vol] 0.66 mg/dL Normal 0.55-1.02 [facility] Comment on above: Performed By: #### L IPID, CMP #### [facility] [address] [place] [address] Dr. Sumaya Frazier EGFR-AF UKRAINIAN >60 Normal >=60 [facility] Comment on above: Performed By: #### L IPID, CMP #### [facility] [address] [place] [address] Dr. Sumaya Frazier EGFR-NON AF UKRAINIAN >60 Normal >=60 [facility] Comment on above: Performed By: #### L IPID, CMP #### [facility] [address] [address] [address] Sumaya Frazier Globulin (S) [Mass/Vol] 3.5 g/dL Normal [facility] Comment on above: Performed By: #### L IPID, CMP #### [facility] [address] [address] [address] Sumaya Frazier Glucose [Mass/Vol] 90 mg/dL Normal 74-106 [facility] Comment on above: Performed By: #### L IPID, CMP #### [facility] [address] [place] [address] Dr. Sumaya Frazier Potassium [Moles/Vol] 4.3 mmol/L Normal 3.5-5.1 [facility] Comment on above: Performed By: #### L IPID, CMP #### [facility] [address] [place] [address] Dr. Sumaya Frazier Protein [Mass/Vol] 7.3 g/dL Normal 6.4-8.2 [facility] Comment on above: Performed By: #### L IPID, CMP #### [facility] [address] [place] [address] Dr. Sumaya Frazier Sodium [Moles/Vol] 136 mmol/L Normal 136-145 [facility] Comment on above: Performed By: #### L IPID, CMP #### [facility] [address] [place] [address] Dr. Sumaya Frazier Urea nitrogen [Mass/Vol] 16.0 mg/dL Normal 7.0-18.0 [facility] Comment on above: Performed By: #### L IPID, CMP #### [facility] [address] [place] [address] Dr. Sumaya Frazier Urea nitrogen/Creatinine [Mass ratio] 24.2 mg/mg Normal [facility] Comment on above: Performed By: #### L IPID, CMP #### [facility] [address] [place] [address] Dr. Sumaya Frazier MG MAMM SCREEN 3D GLORIA CADon 11-23-2021 MG MAMM SCREEN 3D GLORIA CAD Patient: CHRISTIANOODINJuaquinMISSAEL CHETNA Reza. Exam Date: 11/23/2021 : 1960 Gender:F Ordering : DR FRED JULIO . Admission #: [id number] Family : Order #: [id number] CLICK HERE TO VIEW EXAM RADIOLOGY REPORT [...] skin cancer at age 56. LOCATION: [facility] BREAST COMPOSITION: Extremely dense, which lowers [...] Ballard MD on 11/23/2021 at 14:10 Normal [facility] Encounters Encounter Date Encounter Type Care Provider Facility Start: 04-08-2024 End: 04-08-2024 ambulatory SALES RECRUITMENT SPECIALIST Jeanette Shipley Facility:[facility] Start: 05-09-2023 End: 08-07-2023 ambulatory DO Jose G Carter Facility:[facility] Start: 04-05-2023 End: 04-05-2023 Lab Drop off Jeanette Shipley [facility] Start: 04-16-2022 Encounter for genera l adult medical examination without abnormal findings DR FRED JULIO [facility] Start: 04-13-2022 End: 04-14-[address] FRED [...] Immunizations Immunization Date Immunization Notes Care Provider [facility] 05-07-2022 influenza virus vaccine, unspecified formulation Jeanette Violetta [facility] 05-30-2021 influenza virus vaccine, unspecified formulation Jeanette Violetta [facility] Comment on above: Reason for Medicatio n: Prophylaxis 08-08-2020 SARS-CoV-2 (COVID-19 ) mRNA-1273 vaccine Jeanette Violetta [facility] 07-11-2020 SARS-CoV-2 (COVID-19 ) mRNA-1273 vaccine Jeanette Violetta [facility] NEGATED: Highlighted row has not occurred!04-05-2023 influenza virus vaccine, unspecified formulation Jeanette Violetta [facility] Comment on above: Result Comment: pt g etting down through [facility] Payers Date Payer Category Payer Private Health Insurance [id number] 1960 Unknown [id number] 2.16.84 [id number] 1960 Unknown [id number] 2.16.84 [id number] 1960 Unknown [id number] 2.16.84 [id number] 1960 Unknown [id number] 2.16.8 [id number] 1960 Unknown [id number] 2.16.8 [id number] 1959 Unknown [id number] Social History Date Type Detail Facility Start: 04-05-2023 Tobacco smoking status Never s moked tobacco (finding) [facility] Tobacco smoking status Never [facility] Sex Assigned At Female [facility] Clinical Note 06-20-2021 Note Date & [...] by: LALO BALLARD Date: 2021-06-20 16:03 [facility] Evaluation + Plan note Note Date & Type Note Facility Evaluation + Plan note No data available for this section [facility] Hospital Discharge instructions Note Date & Type Note Facility Hospital Discharge instructions No data available for this section [facility] Progress note Note Date & Type Note Facility Progress note No data available for this section [facility] Summary Purpose Family History No Family History Records FoundNo Family History Records Found Advance Directives No Advanced Directives Records FoundNo Advanced Directives Records Found Additional Source Comments INFORMATION SOURCE (unrecogn ized section and content) DATE CREATED AUTHOR 04/17/2022 [facility] pital DATE CREATED AUTHOR AUTHOR'S ORGANIZ ATION 04/09/2024 [facility] Patient Care team informatio n (unrecognized section and content) Personnel Name: Jeanette Lemus Address: Address: [address] [place] [id number]- FOR RECORDS PERTAINING TO PATIENTS WHO ARE [...] BE BASED ON THE PRIMARY CLINICAL RECORDS. [facility] [employer] [facility]. provides no warranty or guarantee of the accuracy or completeness of information in this document.
--- NOTE | 2024-12-11 08:20 | MM_ITS ---
Patient Name: CHETNA JOSHUA MR#: [id number] : 1960 Exam Date: 12/11/2024 Ordering Doctor: DUC ROBLES . RADIOLOGY REPORT PROCEDURE: MM TOMOSYNTHESIS SCREENING BI COMPARISON: MM TOMOSYNTHESIS SCREENING BI, 12/02/2023. MG MAMM SCREEN 3D GLORIA CAD, 11/30/2022. MG MAMM SCREEN 3D GLORIA CAD, 11/23/2021. MG MAMM GLORIA SCRN W CAD DIG, 07/21/2013. INDICATIONS: Screening Calculator Name NCI Breast Cancer Risk Assessment Tool 5 Year Breast Cancer Risk 2.00% Lifetime Breast Cancer Risk 7.90% Personal Breast Cancer No Personal Ovarian Cancer No Treatments None Family Cancers Sister with ovarian cancer at age 57; Sister with lung/liver cancer at age 61; Sister with skin cancer at age 56. LOCATION: [facility] BREAST COMPOSITION: The breasts are extremely dense, which lowers the sensitivity of mammography. FINDINGS: RIGHT BREAST: No significant suspicious finding. LEFT BREAST: No significant suspicious finding. Benign-appearing calcifications are present. DIAGNOSTIC CATEGORY 2--BENIGN FINDING: RECOMMENDATIONS: ROUTINE MAMMOGRAM AND CLINICAL EVALUATION IN 12 MONTHS. PLEASE NOTE: A NORMAL MAMMOGRAM DOES NOT EXCLUDE THE POSSIBILITY OF BREAST CANCER. A CLINICALLY SUSPICIOUS PALPABLE LUMP SHOULD BE BIOPSIED. Dictated by: Luis Falcon MD on 12/11/2024 at 10:12 Approved by: Luis Falcon MD on 12/11/2024 at 10:14
== END 2024-12-11 07:51 | disposition home or self-care (01) ==
LOC: MAMMO 07:50
PROVIDERS: PCP Nurse Practitioner; Visit Provider Nurse Practitioner
DX: Z12.31 Encounter for screening mammogram for malignant neoplasm of breast (principal); Z80.1 Family history of malignant neoplasm of trachea, bronchus and lung; Z80.41 Family history of malignant neoplasm of ovary; Z80.8 Family history of malignant neoplasm of other organs or systems
CPT/HCPCS: 77063; 77067